=== PATIENT | male | born 1965 | race Caucasian/White ===

== ENCOUNTER 2016-12-20 12:07 | Emergency (ER) | payer MEDICARE, MEDICAID ==
[2016-12-20 12:20] VITALS: BP 137/63; PULSE 75; TEMP 97.7; BMI 29.5
[2016-12-20] MEDS ORDERED: OXYCODONE HCL 5 MG TABLET PO ONE (12:50)
[2016-12-20] MEDS ORDERED: ACYCLOVIR 200 MG CAP PO ONE (12:50)
[2016-12-20] MEDS ORDERED: ONDANSETRON HCL 4 MG ODT TAB PO ONE (12:50)
--- NOTE | 2016-12-20 12:54 | EDPRACDOC ---
- General Information Chief Complaint: Skin Rash (not drug induced) Stated Complaint: RASH TO HEAD/HANDS Time Seen by Provider: 12/20/16 12:19 Information Source: Patient Mode Of Arrival: Car Home Medications: Home Medications Esomeprazole Mag Trihydrate [Nexium] 40 mg PO DAILY 09/11/14 Sertraline HCl 200 mg PO DAILY 09/11/14 Aspirin (OrangeEnteric Coated) [Ecotrin] 325 mg PO DAILYWM #100 tab 09/16/14 Montelukast Sodium [Singulair] 10 mg PO DAILY 10/11/14 Pregabalin [Lyrica] 300 mg PO BID 10/15/14 Insulin Pump 0 units SQ .CONTINUOUS 10/22/14 Hydrocodone Bit/Acetaminophen [Markesan 10-325 Tablet] 1 each PO TID PRN 10/01/15 Doxycycline [Vibramycin] 100 mg PO BID #14 tab 12/16/15 Hydrocodone/Acetaminophen [Lortab 5-325 mg Tablet] 1 each PO Q4H PRN #10 tablet 12/16/15 Tramadol HCl [Ultram] 50 mg PO BID PRN 12/16/15 Levofloxacin [Levaquin] 750 mg PO DAILY #10 tab 05/29/16 Oxycodone HCl/Acetaminophen [Percocet 5-325 mg Tablet] 1 - 2 tab PO Q4H PRN #30 tab 05/29/16 Acyclovir 800 mg PO 5XD #35 tablet 12/20/16 Ondansetron [Zofran Odt] 4 mg PO Q6H PRN #20 tab.rapdis 12/20/16 Oxycodone Immediate Release [Oxycodone Immediate Release (OxyIR)] 5 mg PO Q6H PRN #30 tab 12/20/16 Allergies/Adverse Reactions: Allergies Allergy/AdvReac Type Severity Reaction Status Date / Time Penicillins Allergy Unknown Rash-Genera Verified 09/12/16 21:39 lized Sulfa (Sulfonamide Allergy Unknown Rash-Genera Verified 09/12/16 21:39 Antibiotics) lized - History of Present Illness Onset: SEVERAL DAYS HPI: PT PRESENTS WITH RASH TO HEAD THAT HE STATES IS PAINFUL AND NORIEGA. Rash Location: Reports: Scalp Quality: Reports: Painful Known Exposure To: Denies: Chemical, Cosmetic, Lice, Measles, Medication, Poison Melita, Scabies, Varicella, Rubella, STD, Other Relevant History of: Reports: None Irritability: Moderate Pain Severity: Moderate ED Past Medical History - History Reviewed Yes Nurses notes reviewed and agree except as marked - Patient Medical History Neurological History: Reports: Seizures (YEARS AGO) Cardiac History: Reports: Hypertension, Hypercholesterolemia Respiratory History: Reports: Asthma, COPD GI/ History: Reports: Kidney Stones, Gastroesophageal Reflux Musculoskeletal History: Reports: Arthritis Psychological History: Reports: Depression. Denies: Substance Use Disorder Systemic History: Reports: Diabetes, Hypothyroidism. Denies: Cancer Additional Past Medical History: SEASONAL ALLERGIES Surgical History: Reports: Other (KIDNEY STONE REMOVAL) - Family Medical History Reports: Hypertension (MOTHER), Diabetes (2 grandparents), Cancer (GRANDMA). Denies: Stroke, Cardiac Disorders - Social Medical History Smoking Status: Light tobacco smoker (less than 5/day) Social History: Denies: Substance Use Disorder EDM Review of Systems - Review of Systems ROS Negative Except as Marked: Yes All systems reviewed and were negative except as marked - Physical Exam Constitutional: Alert Oriented to: Time, Person, Place Last recorded Vital Signs: Last Vital Signs Temp 97.7 F 12/20/16 12:18 Pulse 75 12/20/16 12:18 Resp 18 12/20/16 12:18 BP 137/63 12/20/16 12:18 Pulse Ox 96 12/20/16 12:18 Oxygen Pulse Oxygen Saturation 96 O2 Device Oxygen Flow Rate Fraction of Inspired Oxygen ( FIO2) - HEENT Head: Other (ULCERATED RASH NOTED TO SCALP) Eye Exam: Normal (PERRL, EOMI, Sclera white) Oropharynx: Normal (Pharynx:Moist without exudate,Gums-no swelling) Nose: No Symptoms Reported (septum midline) Neck: Normal (FROM, trachea at midline) - Respiratory/Cardiovascular Respiratory: Normal - CTA (BBS clear to auscultation without adventitious sounds ) Cardiovascular: Normal (RRR without murmur, gallop or rub) - GI Auscultation: Normal (NABS) Palpation: Normal (Soft,No rebound or guarding, non distended) Tenderness: Non tender Vieyra's Sign: Negative Rectal Exam: Deferred - Musculoskeletal Back: Normal (Non-Tender) Extremities: Normal (Normal tone, Pulses 2+ No cyanosis or edema, FROM) - Integumentary Skin: Normal, Warm, Dry Lymphatics: Normal (no adenopathy) - Neurologic Memory Impaired: Normal Motor Function: Normal (Normal tone, Pulses 2+ No cyanosis or edema, FROM) Cranial Nerve: Normal (CN II-X11 intact sensation, strength 5/5) Cerebellar: Normal Mood Description: Normal Perception: Normal - Differential Diagnosis Herpes zoster/simplex Decision Time to Discharge: 12:57 - Departure Disposition: Home Condition: Stable Final Diagnosis: Shingles rash Qualifiers: Herpes zoster complications: unspecified herpes zoster complication Qualified Code(s): B02.8 - Zoster with other complications Instructions: Shingles (ED) Education/Counseling Given To: Patient Education/Counseling Given Regarding: Diagnosis, Treatment, Prognosis, Follow Up Referrals: Dustin Amador MD [Primary Care Provider] - One Week Prescriptions: New Acyclovir 800 mg PO 5XD #35 tablet Ondansetron [Zofran Odt] 4 mg PO Q6H PRN #20 tab.rapdis PRN Reason: Nausea/Vomiting Oxycodone Immediate Release [Oxycodone Immediate Release (OxyIR)] 5 mg PO Q6H PRN #30 tab PRN Reason: Pain No Action Esomeprazole Mag Trihydrate [Nexium] 40 mg PO DAILY Sertraline HCl 200 mg PO DAILY Aspirin (OrangeEnteric Coated) [Ecotrin] 325 mg PO DAILYWM #100 tab Montelukast Sodium [Singulair] 10 mg PO DAILY Pregabalin [Lyrica] 300 mg PO BID Insulin Pump 0 units SQ .CONTINUOUS Hydrocodone Bit/Acetaminophen [Markesan 10-325 Tablet] 1 each PO TID PRN PRN Reason: Pain Doxycycline [Vibramycin] 100 mg PO BID #14 tab Hydrocodone/Acetaminophen [Lortab 5-325 mg Tablet] 1 each PO Q4H PRN #10 tablet PRN Reason: Pain Tramadol HCl [Ultram] 50 mg PO BID PRN PRN Reason: Pain Levofloxacin [Levaquin] 750 mg PO DAILY #10 tab Oxycodone HCl/Acetaminophen [Percocet 5-325 mg Tablet] 1 - 2 tab PO Q4H PRN # 30 tab PRN Reason: Pain Additional Instructions: FOLLOW UP WITH PCP NEXT WEEK. RETURN TO THE ED FOR WORSENING SYMPTOMS OR CONCERNS
== END 2016-12-20 13:18 | disposition home or self-care (01) ==
LOC: EDMC 12:07
DX: B02.8 Zoster with other complications (principal)
CPT/HCPCS: 99283; A9270; J3490